=== PATIENT | female | born 1990 | race American Indian/Alaskan Native ===

== ENCOUNTER 2017-02-25 02:58 | Emergency (ER) | payer MEDICAID, OTHER ==
[~2017-02-25] VITALS: Ht 175.3 cm; Wt 98.0 kg
[2017-02-25] MEDS ORDERED: HYDROcodone/APAP 5/325 TABLET ONE (03:58)
[2017-02-25] MEDS ORDERED: HYDROcodone/APAP 5/325 TABLET PO ONE (04:00)
[2017-02-25 04:13] VITALS: BP 131/74
== END 2017-02-25 04:15 | disposition home or self-care (01) ==
LOC: ED 04:06
DX: K04.7 Periapical abscess without sinus (principal)
CPT/HCPCS: 99283

== ENCOUNTER 2017-09-07 16:35 | Emergency (ER) | payer MEDICAID ==
[~2017-09-07] VITALS: Ht 175.3 cm; Wt 96.3 kg
[2017-09-07 16:36] VITALS: BP 143/86
[2017-09-07] MEDS ORDERED: ALBUTEROL/IPRATROPIUM 2.5MG/0.5MG, 3 ML ONE (17:44)
[2017-09-07] MEDS ORDERED: ALBUTEROL SULFATE 2.5 MG/3 ML NPPB ONE (18:00)
== END 2017-09-07 18:20 | disposition home or self-care (01) ==
LOC: ED 18:19
DX: J02.8 Acute pharyngitis due to other specified organisms (principal); B97.89 Other viral agents as the cause of diseases classified elsewhere
CPT/HCPCS: 71020; 94640; 99284

== ENCOUNTER 2021-02-14 18:52 | Emergency (ER) | payer MEDICAID ==
[~2021-02-14] VITALS: Ht 175.3 cm; Wt 96.8 kg
[2021-02-14] MEDS ORDERED: PROMETHAZINE 25 MG/ML, 1ML ONE (19:26)
[2021-02-14] MEDS ORDERED: MORPHINE SULFATE 4 MG/ML, 1ML ONE (19:26)
[2021-02-14] MEDS ORDERED: PROMETHAZINE 25 MG/ML, 1ML IM ONE (19:30)
[2021-02-14] MEDS ORDERED: MORPHINE SULFATE 4 MG/ML, 1ML IVPush ONE (19:30)
[2021-02-14] MEDS ORDERED: LACTATED RINGERS 1,000 ML IV ONE (19:30)
[2021-02-14] MEDS ORDERED: SODIUM CHLORIDE FLUSH 10ML SYR IVF ONE (19:30)
[2021-02-14 20:06] LABS: MEAN CORPUSCULAR HEMOGLOBIN 28.9 pg (27.0-34.8); MEAN CORPUSCULAR HGB CONC 33.4 g/dL (32.4-35.8); MEAN PLATELET VOLUME 6.9 fL (7.4-10.4); PLATELET COUNT 509 x10^3/uL (130-400); RED BLOOD COUNT 5.29 x10^6/uL (3.82-5.3); RED CELL DISTRIBUTION WIDTH 14.5 % (9.6-15.2)
[2021-02-14 20:12] LABS: ALANINE AMINOTRANSFERASE 48 U/L (12-78); ALBUMIN 3.7 g/dL (3.4-5.0); ANION GAP 7 mmol/L (5-15); CALCIUM 8.3 mg/dL (8.5-10.1); CHLORIDE 105 mmol/L (98-107); CREATININE 0.78 mg/dL (0.55-1.02)
[2021-02-14 20:16] LABS: MICROSCOPIC INDICATED
[2021-02-14 20:19] LABS: ALKALINE PHOSPHATASE 79 U/L (45-117); TOTAL PROTEIN 7.9 g/dL (6.4-8.2)
[2021-02-14 20:45] LABS: MD YES
--- NOTE | 2021-02-14 20:53 | NUR ---
resting in bed vss resuls pending. as
[2021-02-14 20:57] LABS: BAND#(MANUAL) 0.83 x10^3/uL; BANDS%(MANUAL) 8 % (0-7); LYMPH#(MANUAL) 0.42 x10^3/uL (1-3.4); LYMPHS% (MANUAL) 4 % (22-44); MONOS#(MANUAL) 0.31 x10^3/uL (0.3-2.7); MONOS% (MANUAL) 3 % (2-9); SEG#(MANUAL) 8.84 x10^3/uL (1.8-6.8); SEGS% (MANUAL) 85 % (42-75)
[2021-02-14 20:58] LABS: <PLATELET ESTIMATE> INCREASED; <PLT MORPHOLOGY> NORMAL PLT MORPH; <RBC MORPHOLOGY> NORMAL
[2021-02-14] MEDS ORDERED: CEFTRIAXONE 2 GM in DEXTROSE 5% 50 ML IVPB ONE (21:30)
--- NOTE | 2021-02-14 21:55 | NUR ---
ns bolus hung (only 1 L LR given d/t compatibility issues w abx). pt sleeping. vss. given powerade. as
[2021-02-14] MEDS ORDERED: SODIUM CHLORIDE 0.9% 1,000ML IVBOLUS ONE (22:00)
[2021-02-14 22:48] VITALS: BP 130/79
--- NOTE | 2021-02-14 22:48 | NUR ---
pt had arm bent, abx still not finished, repositioned, tbdc after abx. as
== END 2021-02-14 23:19 | disposition home or self-care (01) ==
LOC: ED 21:19
DX: N10 Acute pyelonephritis (principal); R11.10 Vomiting, unspecified; E86.0 Dehydration; M79.10 Myalgia, unspecified site; R51.9 Headache, unspecified
CPT/HCPCS: 36415; 80053; 81001; 84145; 85025; 86140; 87077; 87086; 87186; 96361; 96365; 96372; 96375; 99285; J0696; J2270; J2550; J7030; J7120